=== PATIENT | female | born 1975 ===

== ENCOUNTER 2023-11-17 10:27 | Outpatient (REF) | payer BC, SELFPAY ==
[2023-11-17 14:57] LABS: HCT 40.4 % (36.0-46.0); MCH 27.5 pg (27.0-33.0); MCHC 32.2 % (32.0-36.0); MCV 85 fL (80-95); MPV 10.7 fL (8.0-11.0); Platelet Count 222 10^3/uL (130-400); RBC 4.73 10^6/uL (3.93-5.22); RDW 13.2 % (11.7-14.6); RDW-SD 41.3 fL; WBC 6.23 10^3/uL (4.4-10.8)
[2023-11-17 15:23] LABS: Hemoglobin A1C 5.5 % (<5.7)
[2023-11-17 15:26] LABS: Iron 55 ug/dL (50-170)
[2023-11-17 15:34] LABS: ALT 36 U/L (14-59); AST 20 U/L (15-37); Albumin 4.3 g/dL (3.4-5.0); Alkaline Phosphatase 72 U/L (46-116); BUN 15 mg/dL (7-18); Bilirubin, Total 0.4 mg/dL (0.2-1.0); CREATININE 0.9 mg/dL (0.55-1.02); Calcium 9.7 mg/dL (8.5-10.1); Calculated LDL 177 mg/dL (<100); Chloride 103 mmol/L (98-107); Cholesterol 259 mg/dL (<200); Estimated GFR 78.37 (mL/min/1.73m2); Glucose 101 mg/dL (74-106); HDL Cholesterol 69 mg/dL (40-60); Potassium 4.3 mmol/L (3.5-5.1); Sodium 141 mmol/L (136-145); TSH (W/Ref FT4) 2.31 uIU/mL (0.36-3.74); Triglyceride 69 mg/dL (<150)
[2023-11-18 09:38] LABS: HIV-1/2 Ag & Ab Screen Negative (Negative)
[2023-11-18 09:49] LABS: Hepatitis C Ab w Rflx HCV PCR Negative (Negative)
== END 2023-11-17 10:28 | disposition home or self-care (01) ==
LOC: NCHCN 10:27
PROVIDERS: PCP Nurse Practitioner Family; Visit Provider Family Medicine
DX: E66.9 Obesity, unspecified (principal); Z12.11 Encounter for screening for malignant neoplasm of colon; Z13.6 Encounter for screening for cardiovascular disorders; Z00.00 Encounter for general adult medical examination without abnormal findings
CPT/HCPCS: 80053; 80061; 85027; 86803; 87389; 83036; 83540; 84443